=== PATIENT | male | born 1950 | race Caucasian/White ===

== ENCOUNTER 2018-03-03 14:33 | Emergency (ER) | payer MEDICARE, MEDICAID ==
[~2018-03-03] VITALS: Ht 167.6 cm; Wt 75.0 kg
--- NOTE | 2018-03-03 14:49 | NUR ---
BIB EMS FROM [facility], PT FOUND IN HALLWAY SLUMPED OVER IN WHEELCHAIR. +INCONTINENT OF URINE, DROWSY. VSS AND FS 84 COLLATOR. EMS RPTS THAT STAFF STATES THEY HAD SEEN PT APPROX 10MIN PRIOR TO CALLING EMS AND THAT HE WAS PUSHING HIMSELF DOWN THE CHIANG IN HIS WC. UPON ARRIVAL EMS RPTS PT WAS INCONTINENT OF URINE, GCS = 14 AND A & 0 TO YEAR AND CITY ONLY. PT NOW CHI TO COMMAND, = T/O, SPEECH IS CLEAR BUT IS SLOW TO RESPOND. EASILY AGGITATED. PANTS ARE WET BUT PT REFUSES TO HAVE THEM REMOVED AT THIS TIME.
--- NOTE | 2018-03-03 14:57 | NUR ---
TASK RN: PT CHECKED IN, SIEZURE PADS PLACED, CALL LIGHT W/I REACH . SBAR RPT GIVEN TO MARAH TAYLOR
--- NOTE | 2018-03-03 15:05 | NUR ---
ERP at BS for consult
--- NOTE | 2018-03-03 16:00 | NUR ---
pt upright on gurney sleeping, responds to verbal stimuli, NAD with equal chest rise/fall, no needs at this time, call light within reach.
--- NOTE | 2018-03-03 17:04 | NUR ---
pt upright on gurney awake & calmn, watching TV, responds to staff, , no needs at this time, call light within reach.
--- NOTE | 2018-03-03 18:04 | NUR ---
pt remains upright on gurney sleeping, responds to verbal stimuli, NAD with equal chest rise/fall, no needs at this time, call light within reach.
[2018-03-03 18:45] VITALS: BP 104/72
--- NOTE | 2018-03-03 18:45 | NUR ---
pt upright on gurney sleeping, responds to verbal stimuli, NAD with equal chest rise/fall, no needs at this time, call light within reach.
--- NOTE | 2018-03-03 18:55 | NUR ---
report given to An
== END 2018-03-03 20:56 | disposition home or self-care (01) ==
LOC: ED 17:35
DX: F10.129 Alcohol abuse with intoxication, unspecified (principal)
CPT/HCPCS: 99283